=== PATIENT | female | born 1945 | race Caucasian/White ===

== ENCOUNTER 2018-02-23 08:28 | Inpatient (IN) | payer MEDICARE ==
[~2018-02-23] VITALS: Ht 162.6 cm; Wt 56.9 kg
[2018-02-23] MEDS ORDERED: SODIUM CHLORIDE FLUSH 10ML SYR IVF ONE (09:00)
[2018-02-23] MEDS ORDERED: ONDANSETRON 2MG/ML, 2ML IVPush ONE (09:00)
[2018-02-23] MEDS ORDERED: ONDANSETRON 2MG/ML, 2ML ONE ×2 (09:14→14:00)
[2018-02-23] MEDS ORDERED: HYDROmorphone 2 MG/ML, 1ML ONE ×2 (09:15→11:57)
[2018-02-23] MEDS: HYDROmorphone 2 MG/ML, 1ML IVPush PRN ×2 (09:19→12:02)
[2018-02-23 09:23] LABS: INTERNATIONAL NORMALIZED RATIO 1.15 (0.93-1.1); PROTHROMBIN TIME 11.9 Seconds (9.6-11.5)
[2018-02-23 09:27] LABS: ALANINE AMINOTRANSFERASE 18 U/L (12-78); ALBUMIN 3.8 g/dL (3.4-5.0); ANION GAP 8 mmol/L (5-15); CALCIUM 8.8 mg/dL (8.5-10.1); CHLORIDE 108 mmol/L (98-107); CREATININE 1.13 mg/dL (0.55-1.02)
[2018-02-23 09:29] LABS: ALKALINE PHOSPHATASE 106 U/L (45-117); BILIRUBIN,TOTAL 1.1 mg/dL (0.2-1.0); TOTAL PROTEIN 7.8 g/dL (6.4-8.2)
[2018-02-23 10:43] LABS: MD YES; MEAN CORPUSCULAR HEMOGLOBIN 30.2 pg (27.0-34.8); MEAN CORPUSCULAR HGB CONC 33.9 g/dL (32.4-35.8); MEAN CORPUSCULAR VOLUME 89.1 fL (80-100); MEAN PLATELET VOLUME 7.4 fL (7.4-10.4); PLATELET COUNT 199 x10^3/uL (130-400); RED BLOOD COUNT 4.57 x10^6/uL (3.82-5.3); RED CELL DISTRIBUTION WIDTH 13.3 % (9.6-15.2)
[2018-02-23 10:45] LABS: BAND#(MANUAL) 1.02 x10^3/uL; BANDS%(MANUAL) 9 % (0-7); LYMPH#(MANUAL) 0.79 x10^3/uL (1-3.4); LYMPHS% (MANUAL) 7 % (22-44); MONOS% (MANUAL) 8 % (2-9); SEG#(MANUAL) 8.59 x10^3/uL (1.8-6.8); SEGS% (MANUAL) 76 % (42-75)
[2018-02-23 10:46] LABS: <PLATELET ESTIMATE> ADEQUATE; <PLT MORPHOLOGY> NORMAL PLT MORPH; <RBC MORPHOLOGY> NORMAL; HEMOGRAM NOTE RECHECKED
[2018-02-23] MEDS ORDERED: OMNIPAQUE 350 MG/ML, 100ML BOTTLE ONE (10:53)
[2018-02-23] MEDS ORDERED: SODIUM CHLORIDE 0.9% 1,000 ML IV ONE (11:24)
[2018-02-23] MEDS ORDERED: SODIUM CHLORIDE FLUSH 10ML SYR IVF PRN (11:30)
[2018-02-23] MEDS ORDERED: ONDANSETRON 2MG/ML, 2ML IVPush PRN (11:30)
[2018-02-23] MEDS ORDERED: METRONIDAZOLE PMX 500MG/100ML 100 ML IV ONE (11:30)
[2018-02-23] MEDS ORDERED: MORPHINE SULFATE 4 MG/ML, 1ML IVPush PRN ×2 (11:30→14:30)
[2018-02-23] MEDS ORDERED: CEFOTETAN PMX 1GM/50ML 50 ML IVPB ONE (11:30)
[2018-02-23] MEDS ORDERED: METRONIDAZOLE PMX 500MG/100ML 0 ML ONE (11:36)
[2018-02-23] MEDS ORDERED: CEFOTETAN PMX 1GM/50ML 50 ML ONE (11:36)
[2018-02-23 12:34] LABS: MICROSCOPIC AUTO
[2018-02-23 12:40] LABS: CULTURE INDICATED? YES
[2018-02-23] MEDS ORDERED: BUPIVACAINE/PF 0.5% ONE (12:51)
[2018-02-23] MEDS ORDERED: FENTANYL PF 100 MCG/2ML ONE (13:01)
[2018-02-23] MEDS ORDERED: PHENYLEPHRINE 10 MG/ML ONE (13:14)
[2018-02-23] MEDS ORDERED: CEFTRIAXONE 1,000 MG ONE (13:32)
[2018-02-23] MEDS ORDERED: CEFAZOLIN 1,000 MG ONE (14:00)
[2018-02-23] MEDS ORDERED: PROPOFOL 10 MG/ML, 20ML ONE (14:00)
[2018-02-23] MEDS ORDERED: DEXAMETHASONE 4 MG/ML, 1ML ONE (14:00)
[2018-02-23] MEDS ORDERED: ROCURONIUM 10MG/ML,5ML ONE (14:00)
[2018-02-23] MEDS ORDERED: GLYCOPYRROLATE 0.2MG/1ML, 5ML ONE (14:00)
[2018-02-23] MEDS ORDERED: SUCCINYLCHOLINE 20 MG/ML, 10ML ONE (14:00)
[2018-02-23] MEDS ORDERED: NEOSTIGMINE 1 MG/ML, 10ML ONE (14:00)
[2018-02-23] MEDS ORDERED: OXYcodone 5 MG/5 ML ORAL.SOL UDC ONE (14:26)
[2018-02-23] MEDS ORDERED: ONDANSETRON ODT 8 MG PO PRN (14:30)
[2018-02-23] MEDS ORDERED: ONDANSETRON 2MG/ML, 2ML IV PRN (14:30)
[2018-02-23] MEDS ORDERED: OXYcodone 5 MG/5 ML ORAL.SOL UDC PO PRN (14:30)
[2018-02-23] MEDS ORDERED: PROCHLORPERAZINE 5 MG/ML, 2ML IV PRN (14:30)
[2018-02-23] MEDS ORDERED: DIAZEPAM 5 MG/ML, 2ML IVPush PRN (14:30)
[2018-02-23] MEDS ORDERED: FENTANYL PF 100 MCG/2ML IV PRN (14:30)
[2018-02-23] MEDS ORDERED: ACETAMINOPHEN 325 MG TABLET PO PRN (14:30)
[2018-02-23] MEDS ORDERED: DIPHENHYDRAMINE 50 MG/ML, 1ML IV PRN (15:30)
[2018-02-23] MEDS ORDERED: LORazepam 2 MG/ML, 1ML IV PRN (15:30)
[2018-02-23] MEDS ORDERED: hydrALAzine 20 MG/ML, 1ML IV PRN (15:30)
[2018-02-23] MEDS ORDERED: DIPHENHYDRAMINE 25 MG CAPSULE PO PRN (15:30)
[2018-02-23] MEDS ORDERED: SODIUM CHLORIDE 0.9% 1,000ML IVBOLUS ONE ×2 (16:00→20:00)
[2018-02-23] MEDS: KETOROLAC 30 MG/1 ML IV PRN (17:33)
[2018-02-23] MEDS: PIPERACILLIN/TAZO/PMX 3.375GM 50 ML IV SCH (18:29)
[2018-02-23] MEDS: POTASSIUM CHLORIDE 20 MEQ in D5%-0.45% NACL 1,000 ML IV SCH (18:30)
[2018-02-23 20:21] VITALS: BP 88/46
[2018-02-24] VITALS (7 sets, daily range): BP systolic 90–113; BP diastolic 46–66
[2018-02-24] MEDS: PIPERACILLIN/TAZO/PMX 3.375GM 50 ML IV SCH ×4 (00:02→18:24)
[2018-02-24] MEDS: KETOROLAC 30 MG/1 ML IV PRN ×4 (00:11→19:09)
[2018-02-24] MEDS: ACETAMINOPHEN 325 MG TABLET PO PRN (05:34)
[2018-02-24 05:55] LABS: ALBUMIN 2.5 g/dL (3.4-5.0); ANION GAP 9 mmol/L (5-15); CALCIUM 7.4 mg/dL (8.5-10.1); CHLORIDE 113 mmol/L (98-107); CREATININE 0.89 mg/dL (0.55-1.02)
[2018-02-24 06:05] LABS: MEAN CORPUSCULAR HEMOGLOBIN 30.9 pg (27.0-34.8); MEAN CORPUSCULAR HGB CONC 33.7 g/dL (32.4-35.8); MEAN CORPUSCULAR VOLUME 91.5 fL (80-100); MEAN PLATELET VOLUME 6.5 fL (7.4-10.4); PLATELET COUNT 172 x10^3/uL (130-400); RED BLOOD COUNT 3.72 x10^6/uL (3.82-5.3); RED CELL DISTRIBUTION WIDTH 13.4 % (9.6-15.2)
[2018-02-24 06:06] LABS: BASOPHILS # (AUTO) 0.02 x10^3/uL (0-0.1); BASOPHILS % (AUTO) 0 % (0-1); EOSINOPHILS # (AUTO) 0.02 x10^3/uL (0-0.4); EOSINOPHILS % (AUTO) 0 % (1-7); LYMPHOCYTES # (AUTO) 0.97 x10^3/uL (1-3.4); LYMPHOCYTES % (AUTO) 9 % (22-44); MD SCAN; MONOCYTES % (AUTO) 8 % (2-9); NEUTROPHILS # (AUTO) 8.58 x10^3/uL (1.8-6.8); NEUTROPHILS % (AUTO) 83 % (42-75)
[2018-02-24] MEDS: POTASSIUM CHLORIDE 20 MEQ in D5%-0.45% NACL 1,000 ML IV SCH ×2 (08:35→18:24)
[2018-02-24] MEDS: ENOXAPARIN 40 MG/0.4 ML SQ SCH (08:36)
[2018-02-24] MEDS: OXYcodone 5 MG/5 ML ORAL.SOL UDC PO PRN ×4 (10:42→23:05)
[2018-02-25] MEDS: PIPERACILLIN/TAZO/PMX 3.375GM 50 ML IV SCH ×4 (00:12→18:10)
[2018-02-25] MEDS: KETOROLAC 30 MG/1 ML IV PRN ×4 (01:19→19:47)
[2018-02-25 02:11] VITALS: BP 103/62
[2018-02-25] MEDS: POTASSIUM CHLORIDE 20 MEQ in D5%-0.45% NACL 1,000 ML IV SCH ×2 (05:48→16:06)
[2018-02-25] MEDS: ONDANSETRON 2MG/ML, 2ML IV PRN ×2 (05:48→13:14)
[2018-02-25 06:49] VITALS: BP 96/50
[2018-02-25] MEDS: ENOXAPARIN 40 MG/0.4 ML SQ SCH (09:25)
[2018-02-25 12:43] VITALS: BP 100/55
[2018-02-25] MEDS: FLUCONAZOLE 200 MG/100 ML 100 ML IV SCH (14:29)
[2018-02-25] MEDS: OXYcodone 5 MG/5 ML ORAL.SOL UDC PO PRN ×2 (16:06→19:59)
[2018-02-25] MEDS ORDERED: FLUCONAZOLE 400 MG/200 ML 200 ML IV SCH (20:00)
[2018-02-25 22:00] VITALS: BP 95/59
[2018-02-26] MEDS: PIPERACILLIN/TAZO/PMX 3.375GM 50 ML IV SCH ×4 (00:35→18:16)
[2018-02-26] MEDS: OXYcodone 5 MG/5 ML ORAL.SOL UDC PO PRN ×4 (00:35→18:16)
[2018-02-26] MEDS: POTASSIUM CHLORIDE 20 MEQ in D5%-0.45% NACL 1,000 ML IV SCH ×2 (01:52→12:32)
[2018-02-26] MEDS: KETOROLAC 30 MG/1 ML IV PRN ×3 (01:52→14:29)
[2018-02-26 04:13] VITALS: BP 88/47
[2018-02-26 04:20] VITALS: BP 90/59
[2018-02-26] MEDS: METOCLOPRAMIDE 5 MG/ML, 2ML IVPush SCH ×3 (06:35→18:16)
[2018-02-26 06:47] LABS: ANION GAP 7 mmol/L (5-15); CALCIUM 8.3 mg/dL (8.5-10.1); CHLORIDE 110 mmol/L (98-107); CREATININE 0.76 mg/dL (0.55-1.02)
[2018-02-26 07:07] LABS: MEAN CORPUSCULAR HEMOGLOBIN 30.8 pg (27.0-34.8); MEAN CORPUSCULAR HGB CONC 33.7 g/dL (32.4-35.8); MEAN CORPUSCULAR VOLUME 91.4 fL (80-100); RED BLOOD COUNT 3.88 x10^6/uL (3.82-5.3); RED CELL DISTRIBUTION WIDTH 13.7 % (9.6-15.2)
[2018-02-26 07:10] LABS: MEAN PLATELET VOLUME 7.9 fL (7.4-10.4); PLATELET COUNT 157 x10^3/uL (130-400)
[2018-02-26 07:12] LABS: BASOPHILS # (AUTO) 0.04 x10^3/uL (0-0.1); BASOPHILS % (AUTO) 0 % (0-1); EOSINOPHILS # (AUTO) 0.64 x10^3/uL (0-0.4); EOSINOPHILS % (AUTO) 6 % (1-7); LYMPHOCYTES # (AUTO) 1.08 x10^3/uL (1-3.4); LYMPHOCYTES % (AUTO) 9 % (22-44); MD SCAN; MONOCYTES # (AUTO) 0.89 x10^3/uL (0.2-0.8); MONOCYTES % (AUTO) 8 % (2-9); NEUTROPHILS % (AUTO) 77 % (42-75)
[2018-02-26 07:17] VITALS: BP 96/53
[2018-02-26] MEDS: ENOXAPARIN 40 MG/0.4 ML SQ SCH (08:14)
[2018-02-26 12:40] VITALS: BP 117/64
[2018-02-26] MEDS: FLUCONAZOLE 200 MG/100 ML 100 ML IV SCH (14:29)
[2018-02-26 20:11] VITALS: BP 107/54
[2018-02-26] MEDS: ACETAMINOPHEN 325 MG TABLET PO PRN (20:38)
[2018-02-26] MEDS: LORazepam 1MG TABLET PO PRN (20:38)
[2018-02-27] MEDS: POTASSIUM CHLORIDE 20 MEQ in D5%-0.45% NACL 1,000 ML IV SCH ×3 (00:07→14:10)
[2018-02-27] MEDS: PIPERACILLIN/TAZO/PMX 3.375GM 50 ML IV SCH ×4 (00:07→18:12)
[2018-02-27] MEDS: OXYcodone 5 MG/5 ML ORAL.SOL UDC PO PRN ×6 (00:08→22:56)
[2018-02-27] MEDS: METOCLOPRAMIDE 5 MG/ML, 2ML IVPush SCH ×4 (00:08→18:12)
[2018-02-27 02:58] VITALS: BP 97/55
[2018-02-27 06:00] LABS: ANION GAP 5 mmol/L (5-15); CHLORIDE 114 mmol/L (98-107)
[2018-02-27 06:01] LABS: CREATININE 0.66 mg/dL (0.55-1.02)
[2018-02-27 06:27] LABS: BASOPHILS # (AUTO) 0.15 x10^3/uL (0-0.1); BASOPHILS % (AUTO) 2 % (0-1); EOSINOPHILS # (AUTO) 0.74 x10^3/uL (0-0.4); EOSINOPHILS % (AUTO) 9 % (1-7); LYMPHOCYTES # (AUTO) 1.13 x10^3/uL (1-3.4); LYMPHOCYTES % (AUTO) 13 % (22-44); MD SCAN; MEAN CORPUSCULAR HEMOGLOBIN 30.9 pg (27.0-34.8); MEAN CORPUSCULAR HGB CONC 33.9 g/dL (32.4-35.8); MEAN PLATELET VOLUME 7.7 fL (7.4-10.4); MONOCYTES # (AUTO) 0.97 x10^3/uL (0.2-0.8); MONOCYTES % (AUTO) 11 % (2-9); NEUTROPHILS # (AUTO) 5.64 x10^3/uL (1.8-6.8); NEUTROPHILS % (AUTO) 65 % (42-75); PLATELET COUNT 247 x10^3/uL (130-400); RED BLOOD COUNT 3.54 x10^6/uL (3.82-5.3); RED CELL DISTRIBUTION WIDTH 13.8 % (9.6-15.2)
[2018-02-27 07:31] VITALS: BP 105/58
[2018-02-27] MEDS: ACETAMINOPHEN 325 MG TABLET PO PRN (08:35)
[2018-02-27] MEDS: ENOXAPARIN 40 MG/0.4 ML SQ SCH (08:35)
[2018-02-27 12:16] VITALS: BP 128/74
[2018-02-27] MEDS: BISACODYL 10 MG SUPP PR SCH ×2 (12:24→16:11)
[2018-02-27] MEDS: FLUCONAZOLE 200 MG/100 ML 100 ML IV SCH (14:10)
[2018-02-27] MEDS: ONDANSETRON 2MG/ML, 2ML IV PRN (16:09)
[2018-02-27 18:48] VITALS: BP 127/69
[2018-02-28] MEDS: METOCLOPRAMIDE 5 MG/ML, 2ML IVPush SCH ×4 (00:08→17:53)
[2018-02-28] MEDS: PIPERACILLIN/TAZO/PMX 3.375GM 50 ML IV SCH ×5 (00:08→17:53)
[2018-02-28 01:13] VITALS: BP 130/80
[2018-02-28] MEDS: OXYcodone 5 MG/5 ML ORAL.SOL UDC PO PRN ×4 (03:22→23:46)
[2018-02-28 04:58] LABS: ANION GAP 5 mmol/L (5-15); CALCIUM 8.1 mg/dL (8.5-10.1); CHLORIDE 109 mmol/L (98-107)
[2018-02-28 04:59] LABS: CREATININE 0.65 mg/dL (0.55-1.02)
[2018-02-28 06:00] LABS: MEAN CORPUSCULAR HEMOGLOBIN 29.7 pg (27.0-34.8); MEAN CORPUSCULAR HGB CONC 33.2 g/dL (32.4-35.8); MEAN CORPUSCULAR VOLUME 89.4 fL (80-100); RED BLOOD COUNT 3.92 x10^6/uL (3.82-5.3); RED CELL DISTRIBUTION WIDTH 13.1 % (9.6-15.2)
[2018-02-28] MEDS: POTASSIUM CHLORIDE 20 MEQ in D5%-0.45% NACL 1,000 ML IV SCH (06:29)
[2018-02-28 07:41] LABS: PLATELET COUNT 187 x10^3/uL (130-400)
[2018-02-28 07:42] LABS: BASOPHILS # (AUTO) 0.04 x10^3/uL (0-0.1); BASOPHILS % (AUTO) 0 % (0-1); EOSINOPHILS # (AUTO) 0.72 x10^3/uL (0-0.4); EOSINOPHILS % (AUTO) 6 % (1-7); LYMPHOCYTES # (AUTO) 1.82 x10^3/uL (1-3.4); LYMPHOCYTES % (AUTO) 16 % (22-44); MD SCAN; MONOCYTES # (AUTO) 1.33 x10^3/uL (0.2-0.8); MONOCYTES % (AUTO) 12 % (2-9); NEUTROPHILS # (AUTO) 7.55 x10^3/uL (1.8-6.8); NEUTROPHILS % (AUTO) 66 % (42-75)
[2018-02-28 08:13] VITALS: BP 133/76
[2018-02-28] MEDS: BISACODYL 10 MG SUPP PR SCH ×2 (08:46→16:29)
[2018-02-28] MEDS: ENOXAPARIN 40 MG/0.4 ML SQ SCH (08:46)
[2018-02-28] MEDS: LORazepam 1MG TABLET PO PRN (10:50)
[2018-02-28] MEDS: FLUCONAZOLE 200 MG/100 ML 100 ML IV SCH (14:35)
[2018-02-28 14:43] VITALS: BP 154/95
[2018-02-28 18:33] VITALS: BP 129/76
[2018-03-01 00:27] VITALS: BP 147/78
[2018-03-01] MEDS: METOCLOPRAMIDE 5 MG/ML, 2ML IVPush SCH ×4 (01:13→16:28)
[2018-03-01] MEDS: PIPERACILLIN/TAZO/PMX 3.375GM 50 ML IV SCH ×4 (01:13→16:27)
[2018-03-01] MEDS: BISACODYL 10 MG SUPP PR SCH ×2 (04:48→16:27)
[2018-03-01 05:51] LABS: ANION GAP 6 mmol/L (5-15); CALCIUM 8.1 mg/dL (8.5-10.1); CHLORIDE 106 mmol/L (98-107); CREATININE 0.59 mg/dL (0.55-1.02)
[2018-03-01] MEDS: POTASSIUM CHLORIDE 20 MEQ in D5%-0.45% NACL 1,000 ML IV SCH (05:55)
[2018-03-01] MEDS: OXYcodone 5 MG/5 ML ORAL.SOL UDC PO PRN (05:59)
[2018-03-01 06:47] LABS: MEAN CORPUSCULAR HEMOGLOBIN 29.8 pg (27.0-34.8); MEAN CORPUSCULAR HGB CONC 33.1 g/dL (32.4-35.8); MEAN CORPUSCULAR VOLUME 90.2 fL (80-100); RED BLOOD COUNT 4.19 x10^6/uL (3.82-5.3); RED CELL DISTRIBUTION WIDTH 12.8 % (9.6-15.2)
[2018-03-01 06:48] LABS: BASOPHILS # (AUTO) 0.04 x10^3/uL (0-0.1); BASOPHILS % (AUTO) 0 % (0-1); EOSINOPHILS # (AUTO) 0.57 x10^3/uL (0-0.4); EOSINOPHILS % (AUTO) 6 % (1-7); LYMPHOCYTES # (AUTO) 1.29 x10^3/uL (1-3.4); LYMPHOCYTES % (AUTO) 14 % (22-44); MD SCAN; MEAN PLATELET VOLUME 7.1 fL (7.4-10.4); MONOCYTES # (AUTO) 1.19 x10^3/uL (0.2-0.8); MONOCYTES % (AUTO) 13 % (2-9); NEUTROPHILS # (AUTO) 6.26 x10^3/uL (1.8-6.8); NEUTROPHILS % (AUTO) 67 % (42-75); PLATELET COUNT 202 x10^3/uL (130-400)
[2018-03-01 07:14] VITALS: BP 127/72
[2018-03-01] MEDS ORDERED: AMOX1TAB64 PO (08:56)
[2018-03-01] MEDS ORDERED: FLUC200T PO (08:57)
[2018-03-01] MEDS ORDERED: TRAM-47 PO (08:57)
[2018-03-01] MEDS: ENOXAPARIN 40 MG/0.4 ML SQ SCH (08:58)
[2018-03-01] MEDS: FLUCONAZOLE 200 MG/100 ML 100 ML IV SCH (13:23)
[2018-03-01 13:52] VITALS: BP 121/76
[2018-03-01] MEDS: ACETAMINOPHEN 325 MG TABLET PO PRN ×2 (15:01→19:58)
[2018-03-01 19:44] VITALS: BP 121/76
== END 2018-03-01 20:15 | disposition home or self-care (01) | DRG 339 ==
LOC: ED 11:23 → EDIP 11:24 → ED 11:48 → 4NOR 12:15
PROVIDERS: ADMIT Surgery; ATTEND Surgery
PROC: 0W9G00Z Drainage of Peritoneal Cavity with Drainage Device, Open Approach (ICD-10-PCS; 2018-02-23)
PROC: 0DTJ4ZZ Resection of Appendix, Percutaneous Endoscopic Approach (ICD-10-PCS; principal; 2018-02-23 13:00)
DX: K35.21 Acute appendicitis with generalized peritonitis, with abscess (principal); K56.7 Ileus, unspecified; F17.210 Nicotine dependence, cigarettes, uncomplicated; B96.20 Unspecified Escherichia coli [E. coli] as the cause of diseases classified elsewhere; B96.6 Bacteroides fragilis [B. fragilis] as the cause of diseases classified elsewhere; B37.9 Candidiasis, unspecified
CPT/HCPCS: 36415; 74177; 80048; 80053; 81001; 82040; 83690; 85025; 85610; 87040; 87070; 87075; 87077; 87086; 87102; 87106; 87186; 87205; 88304; 96374; 96375; 96376; 99285; G0378; J0690; J0696; J1100; J1170; J1650; J1885; J2405; J2543; J2704; J2710; J3010; J3480; J3490; Q9967; J0330; J1450; J2370; J2765; J7030

== ENCOUNTER → 2018-03-13 | Outpatient (CLI) | payer MEDICARE ==
[~2018-03-13] MED LIST: AMOX1TAB64 PO; FLUC200T PO; OMNIPAQUE 350 MG/ML, 100ML BOTTLE ONE; TRAM-47 PO
== END | disposition home or self-care (01) ==
LOC: RAD 11:05
PROVIDERS: ATTEND Surgery
DX: K35.32 Acute appendicitis with perforation, localized peritonitis, and gangrene, without abscess (principal); Z98.890 Other specified postprocedural states
CPT/HCPCS: 74177; Q9967